=== PATIENT | female | born 1955 | race Two or more races ===

== ENCOUNTER → 2022-12-25 | Outpatient (CLI) | payer MEDICAID, MEDICARE ==
[2022-12-25 10:51] LABS: Potassium 4.2 mmol/L (3.5-5.1)
[2022-12-25 11:04] LABS: BUN/Creatinine Ratio 26.9; Bilirubin, Total 0.3 mg/dL (0.2-1.0); Calcium 9.6 mg/dL (8.5-10.1); Total Protein 6.9 g/dL (6.4-8.2)
== END | disposition home or self-care (01) ==
LOC: LAB 09:26
PROVIDERS: ATTEND Internal Medicine
DX: E11.69 Type 2 diabetes mellitus with other specified complication (principal); E78.5 Hyperlipidemia, unspecified
CPT/HCPCS: 36415; 80053; 80061; 83036

== ENCOUNTER → 2023-01-02 | Outpatient (CLI) | payer MEDICAID, MEDICARE, OTHER | END | disposition home or self-care (01) | LOC: RT 16:05 | PROVIDERS: ATTEND Internal Medicine | DX: Z00.00 Encounter for general adult medical examination without abnormal findings (principal) | CPT/HCPCS: 36600; 82805 ==

== ENCOUNTER 2023-06-12 10:44 | Emergency (ER) | payer OTHER ==
[~2023-06-12] VITALS: Ht 152.4 cm; Wt 86.0 kg
[2023-06-12 10:57] VITALS: BP 133/83; PULSE 78; RESP 16; TEMP 97.6; O2SAT 96
[2023-06-12] MEDS ORDERED: TRIAMCINOLONE 40MG/ML 1ML VIAL IX ONE (14:15)
== END 2023-06-12 15:40 | disposition home or self-care (01) ==
LOC: EDBD 10:44 → EDSEX 10:44 → ER 10:44
DX: M17.11 Unilateral primary osteoarthritis, right knee (principal)
CPT/HCPCS: 20610; 73562; 82962; 99283; J3301

== ENCOUNTER → 2024-06-19 | Outpatient (CLI) | payer OTHER ==
[~2024-06-19] MED LIST: BUDE9TAB PO; GABA-1308 PO; LEVO112T4 PO; MESA10003 RE; METF-489 PO; PANT40TA2 PO; SUCR1SUS5 PO
[2024-06-19 09:13] LABS: Urine Bacteria None Seen /hpf (None Seen)
[2024-06-19 09:52] LABS: Basophils # (auto) 0.1 10 ^3/uL (0-0.2); Basophils % (auto) 0.9 % (0.0-2.0); Eosinophils # (auto) 0.1 10 ^3/uL (0-0.8); Hemoglobin 14.2 g/dL (12.2-16.2); Lymphocytes # (auto) 2.2 10 ^3/uL (0.4-5.4); Lymphocytes % (auto) 27.5 % (10.0-50.0); Mean Corpuscular Hemoglobin 29.6 pg (28.0-32.0); Mean Corpuscular Volume 89.8 fL (80.0-100.0); Monocytes # (auto) 0.7 10 ^3/uL (0-1.3); Monocytes % (auto) 8.3 % (0.0-12.0); Neutrophils # (auto) 4.9 10 ^3/uL (1.6-8.6); Neutrophils % (auto) 62.3 % (37.0-80.0); Platelet Count (auto) 288 10^3/uL (140-450); Red Blood Cells 4.79 10^6/uL (4.0-5.20); Red Cell Distribution Width 14.9 % (11.8-14.3); White Blood Cell 7.9 10^3/uL (4.4-10.8)
[2024-06-19 10:04] LABS: Creatinine, Urine 90.6 mg/dL (30.0-125.0)
[2024-06-19 10:08] LABS: Alanine Aminotransferase 10 U/L (7-40); Albumin 4.5 g/dL (3.2-4.8); Alkaline Phosphatase 94 U/L (46-116); Anion Gap 7 (5-15); Aspartate Aminotransferase 11 U/L (13-40); BUN/Creatinine Ratio 23.9 (10.0-20.0); Bilirubin, Total 0.4 mg/dL (0.2-1.0); Blood Urea Nitrogen 16 mg/dL (9-23); Calcium 10.8 mg/dL (8.7-10.4); Carbon Dioxide 27 mmol/L (20-30); Chloride 106 mmol/L (98-107); Cholesterol 181 mg/dL (< 200); Glucose 107 mg/dL (74-106); HDL Cholesterol 52 mg/dL (40-59); LDL Cholesterol 115 mg/dL (< 100); Potassium 3.9 mmol/L (3.5-5.1); Sodium 140 mmol/L (136-145); Triglycerides 127 mg/dL (< 150)
[2024-06-19 10:09] LABS: Total Protein 7.4 g/dL (5.7-8.2)
[2024-06-19 10:14] LABS: Urine Blood Negative /uL (Negative); Urine Clarity Clear (Clear); Urine Color Light-Yellow (Yellow); Urine Mucus FEW (None Seen); Urine Protein, UAD Negative (Negative); Urine Specific Gravity 1.023 (1.001-1.035); Urine Urobilinogen Normal (Negative); Urine WBC 1 /hpf (0 - 5)
[2024-06-19 10:58] LABS: Erythrocyte Sedimentation Rate 8 mm/hr (0-20)
[2024-06-20 08:06] LABS: Rheumatoid Arthritis Factor <10.0 IU/mL (<14.0)
[2024-06-20 13:07] LABS: Anti-Nuclear Antibody Direct Negative (Negative)
== END | disposition home or self-care (01) ==
LOC: LAB 09:00
PROVIDERS: ATTEND Student in an Organized Health Care Education/Training Program
DX: I10 Essential (primary) hypertension (principal); E03.9 Hypothyroidism, unspecified; E11.9 Type 2 diabetes mellitus without complications; M25.50 Pain in unspecified joint; Z79.899 Other long term (current) drug therapy
CPT/HCPCS: 36415; 80053; 80061; 81001; 82043; 82306; 82570; 83036; 84439; 84443; 85025; 85652; 86038; 86431

== ENCOUNTER → 2025-01-26 | Outpatient (CLI) | payer OTHER ==
[2025-01-26 08:43] LABS: Urine Bacteria None Seen /hpf (None Seen)
[2025-01-26 08:47] LABS: Basophils # (auto) 0 10 ^3/uL (0-0.2); Basophils % (auto) 0.5 % (0.0-2.0); Eosinophils # (auto) 0 10 ^3/uL (0-0.8); Eosinophils % (auto) 0.2 % (0.0-7.0); Hematocrit 35.9 % (36.0-46.0); Lymphocytes # (auto) 2.2 10 ^3/uL (0.4-5.4); Lymphocytes % (auto) 25.5 % (10.0-50.0); Mean Corpuscular Hemoglobin 30.6 pg (28.0-32.0); Mean Corpuscular Hgb Conc. 33.4 g/dL (32.0-36.0); Mean Corpuscular Volume 91.6 fL (80.0-100.0); Monocytes # (auto) 0.5 10 ^3/uL (0-1.3); Monocytes % (auto) 6.4 % (0.0-12.0); Neutrophils # (auto) 5.7 10 ^3/uL (1.6-8.6); Neutrophils % (auto) 67.4 % (37.0-80.0); Platelet Count (auto) 282 10^3/uL (140-450); Red Blood Cells 3.91 10^6/uL (4.0-5.20); Red Cell Distribution Width 14.5 % (11.8-14.3); White Blood Cell 8.5 10^3/uL (4.4-10.8)
[2025-01-26 09:13] LABS: Urine Blood Negative /uL (Negative); Urine Budding Yeast OCCASIONAL /hpf (None Seen); Urine Clarity Turbid (Clear); Urine Color Yellow (Yellow); Urine Protein, UAD Negative (Negative); Urine Specific Gravity 1.024 (1.001-1.035); Urine Squamous Epithelial Cell FEW /hpf (<5); Urine Urobilinogen Normal (Negative); Urine WBC 11 /HPF (0-5); Urine pH 7.5 (5.0-9.0)
[2025-01-26 09:14] LABS: Creatinine, Urine 74.09 mg/dL (30.0-125.0)
[2025-01-26 09:17] LABS: Alanine Aminotransferase 18 U/L (7-40); Alkaline Phosphatase 79 U/L (46-116); Anion Gap 6 (5-15); Calcium 10.2 mg/dL (8.7-10.4); Carbon Dioxide 29 mmol/L (20-31); Glucose 91 mg/dL (74-106); Potassium 4.1 mmol/L (3.5-5.1); Sodium 142 mmol/L (136-145); Total Protein 6.6 g/dL (5.7-8.2)
[2025-01-26 09:18] LABS: Albumin 4.3 g/dL (3.2-4.8); Bilirubin, Total 0.4 mg/dL (0.2-1.0)
[2025-01-26 09:22] LABS: Micro Albumin < 3.0 mg/L (<30.0)
[2025-01-26 09:24] LABS: Aspartate Aminotransferase 13 U/L (13-40); Blood Urea Nitrogen 27 mg/dL (9-23); Chloride 107 mmol/L (98-107)
[2025-01-26 09:40] LABS: Cholesterol 198 mg/dL (< 200); HDL Cholesterol 54 mg/dL (40-59)
[2025-01-26 09:53] LABS: LDL Cholesterol 127 mg/dL (< 100); Triglycerides 152 mg/dL (< 150)
== END | disposition home or self-care (01) ==
LOC: LAB 08:28
PROVIDERS: ATTEND Student in an Organized Health Care Education/Training Program
DX: I10 Essential (primary) hypertension (principal); E11.9 Type 2 diabetes mellitus without complications; E03.8 Other specified hypothyroidism; E55.9 Vitamin D deficiency, unspecified
CPT/HCPCS: 36415; 80053; 80061; 81001; 82043; 82306; 82570; 83036; 84439; 84443; 85025

== ENCOUNTER 2025-07-20 09:34 | Outpatient (CLI) | payer OTHER ==
[2025-07-20 10:42] LABS: Hemoglobin 9.8 g/dL (12.2-16.2); Mean Corpuscular Hemoglobin 20.9 pg (28.0-32.0); Nucleated Red Blood Cells % 0.0 %
[2025-07-20 10:46] LABS: Hematocrit 31.9 % (36.0-46.0); Mean Corpuscular Volume 68.0 fL (80.0-100.0)
[2025-07-20 11:10] LABS: Free T4 (Free Thyroxine) 1.65 ng/dL (0.89-1.76)
[2025-07-20 11:22] LABS: Alanine Aminotransferase 11 U/L (7-40); Albumin 4.2 g/dL (3.2-4.8); Alkaline Phosphatase 93 U/L (46-116); Anion Gap 12 (5-15); BUN/Creatinine Ratio 30.1 (10.0-20.0); Carbon Dioxide 24 mmol/L (20-31); Chloride 106 mmol/L (98-107); Glucose 103 mg/dL (74-106); Potassium 3.8 mmol/L (3.5-5.1); Sodium 142 mmol/L (136-145); Total Protein 7.1 g/dL (5.7-8.2)
[2025-07-20 11:23] LABS: Bilirubin, Total 0.4 mg/dL (0.2-1.0)
[2025-07-20 11:26] LABS: Blood Urea Nitrogen 25 mg/dL (9-23); Calcium 10.4 mg/dL (8.7-10.4)
[2025-07-20 11:30] LABS: Urine Protein, UAD Negative (Negative)
[2025-07-20 11:47] LABS: Cholesterol 149 mg/dL (< 200); HDL Cholesterol 43 mg/dL (40-59); Triglycerides 148 mg/dL (< 150)
[2025-07-20 12:33] LABS: Anisocytosis Moderate
[2025-07-20 12:34] LABS: Ovalocytes MODERATE
[2025-07-20 13:53] LABS: Microalb/Creat Ratio, Urine 7.0
== END 2025-07-20 17:00 | disposition home or self-care (01) ==
LOC: LAB 09:34
PROVIDERS: ATTEND Internal Medicine
DX: I12.9 Hypertensive chronic kidney disease with stage 1 through stage 4 chronic kidney disease, or unspecified chronic kidney disease (principal); E11.22 Type 2 diabetes mellitus with diabetic chronic kidney disease; N18.2 Chronic kidney disease, stage 2 (mild); E03.9 Hypothyroidism, unspecified; E78.2 Mixed hyperlipidemia; E55.9 Vitamin D deficiency, unspecified; E11.69 Type 2 diabetes mellitus with other specified complication; R74.8 Abnormal levels of other serum enzymes; Z00.01 Encounter for general adult medical examination with abnormal findings
CPT/HCPCS: 36415; 80053; 80061; 81001; 82043; 82306; 82570; 82607; 83036; 84439; 84443; 85025

== ENCOUNTER 2025-07-30 12:00 | Day surgery (SDC) | payer MEDICAID, MEDICARE, OTHER ==
[2025-07-26 15:46] LABS: Hemoglobin 10.6 g/dL (12.2-16.2)
[2025-07-26 15:48] LABS: Hematocrit 34.2 % (36.0-46.0); Mean Corpuscular Hemoglobin 21.6 pg (28.0-32.0); Mean Corpuscular Volume 69.8 fL (80.0-100.0); Nucleated Red Blood Cells % 0.0 %
[2025-07-26 15:49] LABS: Urine Protein, UAD Negative (Negative)
[2025-07-26 16:04] LABS: INR 1.13 (0.9-1.15); Partial Thromboplastin Time 26.4 SEC (24.5-34.5); Prothrombin Time 11.8 sec (9.3-11.8)
[2025-07-26 16:11] LABS: Anisocytosis Marked
[2025-07-26 16:40] LABS: Albumin 4.6 g/dL (3.2-4.8); Alkaline Phosphatase 100 U/L (46-116); Anion Gap 13 (5-15); BUN/Creatinine Ratio 20.0 (10.0-20.0); Blood Urea Nitrogen 14 mg/dL (9-23); Carbon Dioxide 23 mmol/L (20-31); Chloride 106 mmol/L (98-107); Glucose 83 mg/dL (74-106); Sodium 142 mmol/L (136-145); Total Protein 7.8 g/dL (5.7-8.2)
[2025-07-26 16:41] LABS: Bilirubin, Total 0.4 mg/dL (0.2-1.0)
[2025-07-26 16:42] LABS: Alanine Aminotransferase 9 U/L (7-40); Calcium 10.7 mg/dL (8.7-10.4); Potassium 3.5 mmol/L (3.5-5.1)
[~2025-07-30] VITALS: Ht 152.4 cm; Wt 73.5 kg
[~2025-07-30 12:00] MED LIST changes: -GABA-1308 PO; +GABA300T4 PO; -MESA10003 RE; +MESA400C5 PO; -METF-489 PO; +METF-490 PO; -SUCR1SUS5 PO
[2025-07-30] MEDS ORDERED: METOCLOPRAMIDE HCL 5MG/ml INJ 2ml VIAL ONE (12:54)
[2025-07-30] MEDS ORDERED: ONDANSETRON HCL 4 MG/2 ML VIAL ONE (12:54)
[2025-07-30] MEDS ORDERED: PROPOFOL 10 MG/ML 20 ML IV ONE ×2 (12:55→13:19)
[2025-07-30 13:23] VITALS: PULSE 84; RESP 16; TEMP 97.4; O2SAT 97
[2025-07-30 13:33] VITALS: PULSE 84; RESP 17; O2SAT 97
[2025-07-30 14:08] VITALS: BP 127/73; PULSE 84; RESP 13; O2SAT 95
--- NOTE | 2025-07-30 15:51 | DVHOP2 ---
Operative Report DATE OF OPERATION: 07/30/25 PROCEDURE: Colonoscopy with hot snare polypectomy. PREOPERATIVE INDICATION: The patient is a 69 -year-old female undergoing colonoscopy for surveillance with personal history of ulcerative colitis and colon polyps POSTOPERATIVE DIAGNOSES: 1. Patient had 3-4 benign appearing inflammatory polyps seen at the suspected area of ileocolonic anastomosis or abnormal cecum and terminal ileum area these were removed via cold biopsy forceps 2. Patient had a 5 mm benign-appearing transverse colon polyp that was seen and removed by hot snare polypectomy 3. Patient had brief less than 10 mm benign-appearing sigmoid polyps that were seen and removed by hot snare polypectomy 4. There was another 3-4 mm benign-appearing rectal polyp that was seen and removed by hot snare polypectomy 5. There was moderate to severe sigmoid colonic diverticular disease 6. There were two areas of Mari ink one noted in the splenic flexure and the other in the sigmoid colon and there was no residual polyp in this area 7. Otherwise essentially completely normal examination up to the ileocolonic anastomosis or abnormal ileocolonic junction PROCEDURE PERFORMED BY: Fernando Chairez M.D. SCOPE: Olympus videocolonoscope. ASA CLASS: 3 PREOPERATIVE MEDICATIONS: Dr. Keyonna El PROCEDURE IN DETAIL: After obtaining an informed consent, the patient was placed on left lateral decubitus position. She was then sedated with the above medications. A rectal examination was performed that was normal. The colonoscope was then passed through the anus into the rectosigmoid and through the descending, transverse, and ascending colon up to the ileocolonic area there appeared to be ileocolonic anastomosis Patient had some aphthous like ulceration superficial and p.o. four tiny inflammatory polyp seen in this area that were removed by cold biopsy forceps There was a 5 mm benign-appearing transverse colon polyp that was seen and removed via hot snare polypectomy and the specimens were retrieved Patient had three 5-10 mm benign-appearing sigmoid polyps that were seen and removed by hot snare polypectomy Patient had another 5 mm benign-appearing rectal polyp that was seen and removed by hot snare polypectomy Patient had moderate sigmoid diverticular disease and on retroflexion trace to 1+ internal hemorrhoids. Patient had two areas of Mari ink one was in the sigmoid and the other in the splenic flexure distal transverse colon area but there was no recurrent polyp The colitis appears to be mostly in remission. The patient tolerated the procedure well without difficulty. WITHDRAWAL TIME: 12 minutes QUALITY OF THE PREP: [place] Bowel Prep score: 9. COMPLICATIONS : None SPECIMENS: Ileocecal valve polyps Transverse colon polyp Sigmoid polyps Rectal polyp DISPOSITION: Stable D/C to home PLAN: 1. Repeat colonoscopy base on biopsy result likely in 3-5 years 2. Resume GI soft diet advance as tolerated 3. Outpatient follow up with me in 4-6 weeks to review results and discuss further management FERNANDO CHAIREZ MD Jul 30, 2025 15:51
[2025-07-31] MEDS ORDERED: LIDOCAINE 1% INJ PF 5ML AMP IJ ONE (13:29)
== END 2025-07-30 14:13 | disposition home or self-care (01) ==
LOC: GI 12:00
PROVIDERS: ATTEND Internal Medicine Gastroenterology
DX: Z12.11 Encounter for screening for malignant neoplasm of colon (principal); K51.40 Inflammatory polyps of colon without complications; K63.5 Polyp of colon; K57.30 Diverticulosis of large intestine without perforation or abscess without bleeding; D12.5 Benign neoplasm of sigmoid colon; E11.9 Type 2 diabetes mellitus without complications; E03.9 Hypothyroidism, unspecified; Z79.84 Long term (current) use of oral hypoglycemic drugs; Z98.890 Other specified postprocedural states; Z88.8 Allergy status to other drugs, medicaments and biological substances; Z87.19 Personal history of other diseases of the digestive system; Z86.0100 Personal history of colon polyps, unspecified; K62.1 Rectal polyp
CPT/HCPCS: 36415; 45380; 45385; 80053; 81001; 82962; 85025; 85610; 85730; 88305; J2405; J2704; J2765; J7030